=== PATIENT | male | born 1930 | race Caucasian/White ===

== ENCOUNTER 2019-02-24 07:58 | Emergency (ER) | payer MEDICARE, OTHER ==
[~2019-02-24] VITALS: Ht 175.3 cm; Wt 77.3 kg
[2019-02-24] MEDS ORDERED: PRAVACHOL 20MG20 MG PO (08:24)
[2019-02-24] MEDS ORDERED: ZYLOPRIM 300MG300 MG PO (08:24)
[2019-02-24] MEDS ORDERED: VITAMIN D 400400 IU PO (08:24)
[2019-02-24] MEDS ORDERED: APRESOLINE 10MG10 MG PO (08:25)
[2019-02-24] MEDS ORDERED: COZAAR100 MG PO (08:25)
[2019-02-24] MEDS ORDERED: BASAGLAR K100 UNIT/1 SQ (08:25)
[2019-02-24] MEDS ORDERED: LASIX 20MG TABL20 MG PO (08:26)
[2019-02-24] MEDS ORDERED: LOPRESSOR 550 MG/TAB PO (08:26)
[2019-02-24] MEDS ORDERED: SENSIPAR30 MG PO (08:26)
[2019-02-24] MEDS ORDERED: PROCRIT 2,02 MU/VIAL (08:26)
[2019-02-24] MEDS ORDERED: HYTRIN 5MG C5 MG/CAP PO (08:27)
[2019-02-24 08:58] LABS: COLLECTION METHOD CLEAN CATCH
[2019-02-24 09:01] LABS: BASO % 0.1 % (0.0-2.0); EOS # 0.1 (0.0-0.7); EOS % 0.9 % (0-4.0); GRAN # 6.9 (1.4-6.5); GRAN % 84.7 % (42.2-75.2); HEMATOCRIT 27.7 % (42.0-52.0); HEMOGLOBIN 8.1 g/dl (13.5-18.0); LYMPH # 0.8 (1.2-3.4); LYMPH % 9.2 % (20.0-51.0); MEAN CELL VOLUME 86 fl (80.0-100.0); MEAN CORPUSCULAR HEMOGLOBIN 25 pg (27.0-31.0); MEAN CORPUSCULAR HGB CONC 29 g/dl (33.0-37.0); MONO # 0.4 (0.1-0.6); MONO % 4.7 % (1.7-9.3); PLATELET COUNT 195 K/mm3 (130-400); RED BLOOD COUNT 3.24 M/mm3 (4.20-5.60); REDCELL DISTRIBUTION WIDTH-CV 17.2 % (11.5-14.5)
[2019-02-24 09:12] LABS: MUCOUS Present /lpf; PH 6 (5-8); SQUAMOUS EPITHELIAL 0-2 /hpf; URINE APPEARANCE Clear; URINE BACTERIA None Seen /hpf; URINE BILIRUBIN Negative (NEGATIVE); URINE BLOOD Negative (NEGATIVE); URINE COLOR Yellow; URINE GLUCOSE Negative (NEGATIVE); URINE KETONE Negative (NEGATIVE); URINE LEUKOCYTE ESTERASE Negative (NEGATIVE); URINE NITRATE Negative (NEGATIVE); URINE PROTEIN(semi-quant) 2+ (NEGATIVE); URINE UROBILINOGEN Negative (NEGATIVE)
[2019-02-24 09:39] LABS: ALBUMIN 3.9 gm/dL (3.5-5.0); BILIRUBIN,TOTAL 0.4 mg/dL (0.0-1.0); CALCIUM 8.3 mg/dL (8.4-10.2); CREATININE, serum 1.61 (0.66-1.25); POTASSIUM 3.8 mmol/L (3.4-5.0); TOTAL PROTEIN 7.2 gm/dL (6.4-8.2)
[2019-02-24] MEDS ORDERED: CIPRO 250MG TA250 MG PO (10:24)
[2019-02-24 10:45] VITALS: BP 129/94; PULSE 95; TEMP 97.5
== END 2019-02-24 10:48 | disposition home or self-care (01) ==
LOC: COL.ER 07:58
PROVIDERS: Emergency Medicine
DX: N18.9 Chronic kidney disease, unspecified (principal); R33.9 Retention of urine, unspecified; E11.9 Type 2 diabetes mellitus without complications; I10 Essential (primary) hypertension; D64.9 Anemia, unspecified; Z87.442 Personal history of urinary calculi; Z90.49 Acquired absence of other specified parts of digestive tract; Z87.438 Personal history of other diseases of male genital organs; Z85.6 Personal history of leukemia; Z79.4 Long term (current) use of insulin
CPT/HCPCS: J7030

== ENCOUNTER 2019-02-27 14:05 | Emergency (ER) | payer MEDICARE, OTHER ==
[~2019-02-27] VITALS: Ht 175.3 cm; Wt 77.3 kg
[~2019-02-27 14:05] MED LIST: APRESOLINE 10MG10 MG PO; BASAGLAR K100 UNIT/1 SQ; CIPRO 250MG TA250 MG PO; COZAAR100 MG PO; HYTRIN 5MG C5 MG/CAP PO; LASIX 20MG TABL20 MG PO; LOPRESSOR 550 MG/TAB PO; PRAVACHOL 20MG20 MG PO; PROCRIT 2,02 MU/VIAL; SENSIPAR30 MG PO; VITAMIN D 400400 IU PO; ZYLOPRIM 300MG300 MG PO
[2019-02-27 14:16] VITALS: BP 150/69; TEMP 97.6
[2019-02-27 15:59] LABS: COLLECTION METHOD IN
[2019-02-27 16:38] LABS: MUCOUS Present /lpf; PH 5 (5-8); SQUAMOUS EPITHELIAL 0-2 /hpf; URINE APPEARANCE Hazy; URINE BACTERIA None Seen /hpf; URINE BILIRUBIN Negative (NEGATIVE); URINE BLOOD 3+ (NEGATIVE); URINE COLOR Yellow; URINE GLUCOSE Negative (NEGATIVE); URINE KETONE Negative (NEGATIVE); URINE LEUKOCYTE ESTERASE Trace (NEGATIVE); URINE NITRATE Negative (NEGATIVE); URINE PROTEIN(semi-quant) 1+ (NEGATIVE); URINE RBC >50 /hpf; URINE UROBILINOGEN Negative (NEGATIVE)
[2019-02-27] MEDS ORDERED: CIPRO 500MG TA500 MG PO (16:45)
[2019-02-27 17:05] VITALS: PULSE 82
== END 2019-02-27 17:05 | disposition home or self-care (01) ==
LOC: COL.ER 14:05
PROVIDERS: Emergency Medicine
DX: T83.098A Other mechanical complication of other urinary catheter, initial encounter (principal); R33.9 Retention of urine, unspecified; E11.9 Type 2 diabetes mellitus without complications; E78.5 Hyperlipidemia, unspecified; I10 Essential (primary) hypertension; Z87.891 Personal history of nicotine dependence; Z90.49 Acquired absence of other specified parts of digestive tract; Z79.4 Long term (current) use of insulin

== ENCOUNTER 2019-03-03 15:10 | Inpatient (IN) | payer MEDICARE, OTHER ==
[~2019-03-03] VITALS: Ht 175.3 cm; Wt 87.9 kg
[2019-03-03] VITALS (138 sets, daily range): BP systolic 142–151; BP diastolic 65–82; PULSE 70–77; TEMP 97.6–98; O2SAT 93–100
[~2019-03-03 15:10] MED LIST changes: +CIPRO 500MG TA500 MG PO
[2019-03-03 19:32] LABS: BASO % 0.4 % (0.0-2.0); EOS # 0.2 (0.0-0.7); EOS % 4.3 % (0-4.0); GRAN # 3.5 (1.4-6.5); LYMPH # 1.2 (1.2-3.4); LYMPH % 22.9 % (20.0-51.0); MEAN CELL VOLUME 85 fl (80.0-100.0); MEAN CORPUSCULAR HGB CONC 29 g/dl (33.0-37.0); MONO # 0.3 (0.1-0.6); PLATELET COUNT 157 K/mm3 (130-400)
[2019-03-03 19:34] LABS: HEMATOCRIT 20.5 % (42.0-52.0); HEMOGLOBIN 5.9 g/dl (13.5-18.0); MEAN CORPUSCULAR HEMOGLOBIN 25 pg (27.0-31.0)
[2019-03-03 19:42] LABS: ALBUMIN 3.1 gm/dL (3.5-5.0); BILIRUBIN,TOTAL 0.2 mg/dL (0.0-1.0); CALCIUM 7.3 mg/dL (8.4-10.2); CREATININE, serum 1.84 (0.66-1.25); POTASSIUM 3.6 mmol/L (3.4-5.0)
[2019-03-03 20:23] LABS: COLLECTION METHOD IN
[2019-03-03 20:37] LABS: PH 5 (5-8); SQUAMOUS EPITHELIAL None Seen /hpf; URINE APPEARANCE Clear; URINE BACTERIA None Seen /hpf; URINE BILIRUBIN Negative (NEGATIVE); URINE BLOOD 3+ (NEGATIVE); URINE COLOR Yellow; URINE GLUCOSE Negative (NEGATIVE); URINE KETONE Negative (NEGATIVE); URINE LEUKOCYTE ESTERASE Trace (NEGATIVE); URINE NITRATE Negative (NEGATIVE); URINE PROTEIN(semi-quant) 2+ (NEGATIVE); URINE RBC >50 /hpf; URINE UROBILINOGEN Negative (NEGATIVE)
[2019-03-04] VITALS (869 sets, daily range): BP systolic 128–151; BP diastolic 56–96; PULSE 63–83; TEMP 97.4–98.2; O2SAT 76–100
[2019-03-04] MEDS ORDERED: PROCRIT 2,02 MU/VIAL SQ (00:08)
[2019-03-04 04:22] LABS: BASO % 0.3 % (0.0-2.0); EOS # 0.3 (0.0-0.7); EOS % 4.9 % (0-4.0); GRAN # 4.3 (1.4-6.5); GRAN % 69.3 % (42.2-75.2); HEMATOCRIT 24.4 % (42.0-52.0); HEMOGLOBIN 7.5 g/dl (13.5-18.0); LYMPH # 1.1 (1.2-3.4); LYMPH % 17.8 % (20.0-51.0); MEAN CELL VOLUME 85 fl (80.0-100.0); MEAN CORPUSCULAR HEMOGLOBIN 26 pg (27.0-31.0); MEAN CORPUSCULAR HGB CONC 31 g/dl (33.0-37.0); MONO # 0.5 (0.1-0.6); MONO % 7.4 % (1.7-9.3); PLATELET COUNT 173 K/mm3 (130-400); RED BLOOD COUNT 2.88 M/mm3 (4.20-5.60)
[2019-03-04 04:34] LABS: CALCIUM 7.1 mg/dL (8.4-10.2); CREATININE, serum 1.53 (0.66-1.25); POTASSIUM 3.7 mmol/L (3.4-5.0)
--- NOTE | 2019-03-04 07:15 | NUR ---
BEDSIDE REPORT RECIEVED FROM SHIRLEY FARIAS.
--- NOTE | 2019-03-04 10:46 | NUR ---
MAEGAN met with the patient to discuss a discharge plan. The pt lives in [place] with his Mayte Mckenna. The pt has a cane and a walker and reports independence with ADLs. The pt's PCP is Dr. Sinclair with [facility] at the [facility]. Pt receives his medications via mail with no difficulties. The pt does not have advanced directives in the EMR but reports he does have them complete and designate his , Mayte Mckenna, and their daughter Silvia. The pt plans to return home upon discharge. There are no additional needs at this time.
[2019-03-04] MEDS ORDERED: ASPIRIN E.C. 8181 MG PO (11:22)
[2019-03-04] MEDS ORDERED: APRESOLINE 10MG10 MG PO (11:25)
[2019-03-04] MEDS ORDERED: FERROUS SU220 MG/5 M PO (11:29)
[2019-03-04 14:50] LABS: HEMATOCRIT 25.5 % (42.0-52.0); HEMOGLOBIN 7.8 g/dl (13.5-18.0)
--- NOTE | 2019-03-04 15:00 | NUR ---
PATIENT PICKED UP BY SHIRLEY MCDERMOTT FOR COLONOSCOPY PROCEDURE. CONSENT FORM NOT SIGNED AT THIS TIME. PATIENT HAS YET TO SPEAK WITH DOCTOR DINORA.
--- NOTE | 2019-03-04 16:00 | NUR ---
PATIENT RETURNED FROM EGD AND COLONOSCOPY ALERT AND ORIENTED. WAS ABLE TO AMBULATE TO THE BED. PATIENT'S VITAL SIGNS WERE WITHIN NORMAL LIMITS.
--- NOTE | 2019-03-04 19:44 | NUR ---
BEDSIDE REPORT GIVEN TO SHIRLEY FARIAS.
[2019-03-04 22:34] LABS: HEMATOCRIT 23.2 % (42.0-52.0)
[2019-03-05] VITALS (448 sets, daily range): BP systolic 118–155; BP diastolic 57–89; PULSE 56–69; TEMP 97.6–98.4; O2SAT 73–100
[2019-03-05 05:45] LABS: BASO % 0.4 % (0.0-2.0); EOS # 0.2 (0.0-0.7); EOS % 4.8 % (0-4.0); GRAN # 3.1 (1.4-6.5); LYMPH # 1.1 (1.2-3.4); LYMPH % 22.2 % (20.0-51.0); MEAN CELL VOLUME 86 fl (80.0-100.0); MEAN CORPUSCULAR HGB CONC 29 g/dl (33.0-37.0); MONO # 0.4 (0.1-0.6); MONO % 8.2 % (1.7-9.3); PLATELET COUNT 163 K/mm3 (130-400); RED BLOOD COUNT 2.78 M/mm3 (4.20-5.60); REDCELL DISTRIBUTION WIDTH-CV 16.3 % (11.5-14.5)
[2019-03-05 05:50] LABS: MEAN CORPUSCULAR HEMOGLOBIN 25 pg (27.0-31.0)
[2019-03-05 05:56] LABS: CALCIUM 6.5 mg/dL (8.4-10.2); CREATININE, serum 1.36 (0.66-1.25); POTASSIUM 3.2 mmol/L (3.4-5.0)
--- NOTE | 2019-03-05 07:10 | NUR ---
RECEIVED BEDSIDE REPORT FROM SHIRLEY FARIAS.
--- NOTE | 2019-03-05 10:26 | NUR ---
Initial visit; Patient 'Cicero' thanked Oyster Fisherman for looking in on him and offering prayer and Spiritual Care.
--- NOTE | 2019-03-05 13:52 | NUR ---
SW attended clinical rounds. Patient will be moved to the surgical floor today. SW will continue to follow.
--- NOTE | 2019-03-05 15:19 | NUR ---
REPORT CALLED TO SHIRLEY KNOTT. PATIENT WILL BE TRANSFERRED TO SURGICAL FLOOR, ROOM 324.
--- NOTE | 2019-03-05 15:40 | NUR ---
PATIENT TRANSFERRED TO SURGICAL FLOOR. PATIENT SEEN BY RECEIVING RNHEDY.
--- NOTE | 2019-03-05 17:22 | NUR ---
PT TO ROOM 324 @1600 WITH REPORT FROM TALI WATSON. BLOOD RUNNING @100 MLS HR.
--- NOTE | 2019-03-05 20:00 | NUR ---
Report received. Assumed care for weight shifter. Assessment complete. VS stable. Unit of PRBC infused-Magnesium hung at this time per dr order. Denies pain. Hernandez cath with clear yellow urine. Plan of care discussed for NPO after midnight. Verbalizes understanding. C/O pola hose being to tight-noted to have indentions at upper thigh. Cut slits in band to prevent irritation. Denies any other needs at this time. Call light in reach and encouraged to call for questions. Verbalizes understanding. WIll monitor.
[2019-03-05 22:01] LABS: HEMATOCRIT 27.6 % (42.0-52.0); HEMOGLOBIN 8.2 g/dl (13.5-18.0)
[2019-03-06] VITALS (11 sets, daily range): BP systolic 102–164; BP diastolic 52–91; PULSE 55–75; TEMP 96–98.1
--- NOTE | 2019-03-06 07:00 | NUR ---
report from Darya WATSON.
[2019-03-06 07:05] LABS: PROTHROMBIN TIME 11.9 SECONDS (9.7-12.8)
[2019-03-06 07:06] LABS: BASO % 0.2 % (0.0-2.0); EOS # 0.2 (0.0-0.7); EOS % 4.3 % (0-4.0); LYMPH # 1.1 (1.2-3.4); LYMPH % 22.6 % (20.0-51.0); MEAN CELL VOLUME 85 fl (80.0-100.0); MEAN CORPUSCULAR HGB CONC 30 g/dl (33.0-37.0); MEAN PLATELET VOLUME 10.4 fl (7.4-10.4); MONO # 0.4 (0.1-0.6); MONO % 8.5 % (1.7-9.3); PLATELET COUNT 162 K/mm3 (130-400); REDCELL DISTRIBUTION WIDTH-CV 16.7 % (11.5-14.5)
[2019-03-06 07:07] LABS: CALCIUM 7.1 mg/dL (8.4-10.2); CREATININE, serum 1.49 (0.66-1.25); POTASSIUM 4.4 mmol/L (3.4-5.0)
[2019-03-06 07:13] LABS: HEMATOCRIT 26.3 % (42.0-52.0); HEMOGLOBIN 7.9 g/dl (13.5-18.0); MEAN CORPUSCULAR HEMOGLOBIN 25 pg (27.0-31.0)
--- NOTE | 2019-03-06 15:56 | NUR ---
pt to surgery per bed with
--- NOTE | 2019-03-06 18:51 | NUR ---
PT TO ROOM 324 OER BED WITH REPORT FROM LORAINE WATSON. PT DROWSEY BUT AROUSEABLE. VSS, CBI WITH 6000 CR. PT DENIES NEEDS FAMILY AT BEDSIDE.
--- NOTE | 2019-03-06 18:54 | NUR ---
REPORT TO ROULA WATSON.
--- NOTE | 2019-03-06 20:00 | NUR ---
Report received. Assumed care for overnight caregiver. Assessment complete. VS stable-currently on post op vitals Q15. Denies pain but has c/o nausea with some dry heaves. Dr Montoya notified and new orders received for IV zofran. Given at this time. CBI at a moderate rate-output is red to light pink. Encouraged to call for questions or concers. Denies needs. WIll monitor.
[2019-03-07 03:53] VITALS: BP 135/51; PULSE 64; TEMP 98
--- NOTE | 2019-03-07 04:00 | NUR ---
Rested off and on this shift. Denies pain. CBI at a slow rate. Urine remains light pink with occasional clot. Denies Nausea. Encouraged to call for questions or concerns. Verbalizes understanding. WIll monitor.
--- NOTE | 2019-03-07 06:54 | NUR ---
Report given to Mehdi WATSON
--- NOTE | 2019-03-07 07:00 | NUR ---
Report from Darya WATSON.
[2019-03-07 07:56] LABS: CREATININE, serum 1.37 (0.66-1.25); POTASSIUM 4.4 mmol/L (3.4-5.0)
[2019-03-07 08:05] VITALS: BP 155/70; PULSE 78; TEMP 97.9
[2019-03-07 08:18] LABS: BASO % 0.4 % (0.0-2.0); EOS # 0.2 (0.0-0.7); EOS % 3.9 % (0-4.0); GRAN # 3.5 (1.4-6.5); GRAN % 69.5 % (42.2-75.2); HEMATOCRIT 25.5 % (42.0-52.0); HEMOGLOBIN 7.7 g/dl (13.5-18.0); LYMPH # 0.9 (1.2-3.4); LYMPH % 17.9 % (20.0-51.0); MEAN CELL VOLUME 86 fl (80.0-100.0); MEAN CORPUSCULAR HEMOGLOBIN 26 pg (27.0-31.0); MEAN CORPUSCULAR HGB CONC 30 g/dl (33.0-37.0); MEAN PLATELET VOLUME 10.1 fl (7.4-10.4); MONO # 0.4 (0.1-0.6); MONO % 7.7 % (1.7-9.3); PLATELET COUNT 146 K/mm3 (130-400); RED BLOOD COUNT 2.97 M/mm3 (4.20-5.60); REDCELL DISTRIBUTION WIDTH-CV 16.7 % (11.5-14.5)
[2019-03-07 11:54] VITALS: BP 147/57; PULSE 68; TEMP 98.4
[2019-03-07 15:27] VITALS: BP 145/56; PULSE 73; TEMP 98.2
--- NOTE | 2019-03-07 18:52 | NUR ---
REPORT TO CHRIS WATSON.
[2019-03-07 19:47] VITALS: BP 148/53; PULSE 68; TEMP 98.2
[2019-03-07 23:57] VITALS: BP 141/60; PULSE 74; TEMP 98.3
[2019-03-08 04:59] VITALS: BP 124/52; PULSE 81; TEMP 98.1
[2019-03-08 06:42] LABS: BASO % 0.4 % (0.0-2.0); EOS # 0.2 (0.0-0.7); EOS % 2.7 % (0-4.0); GRAN # 5.7 (1.4-6.5); GRAN % 75.8 % (42.2-75.2); LYMPH # 1.1 (1.2-3.4); MEAN CELL VOLUME 88 fl (80.0-100.0); MEAN CORPUSCULAR HGB CONC 29 g/dl (33.0-37.0); MEAN PLATELET VOLUME 9.8 fl (7.4-10.4); MONO # 0.5 (0.1-0.6); MONO % 6.7 % (1.7-9.3); PLATELET COUNT 168 K/mm3 (130-400); RED BLOOD COUNT 3.28 M/mm3 (4.20-5.60); REDCELL DISTRIBUTION WIDTH-CV 16.6 % (11.5-14.5)
[2019-03-08 06:49] LABS: CALCIUM 7.3 mg/dL (8.4-10.2); CREATININE, serum 1.8 (0.66-1.25); POTASSIUM 4.7 mmol/L (3.4-5.0)
[2019-03-08 06:50] LABS: HEMOGLOBIN 8.5 g/dl (13.5-18.0); MEAN CORPUSCULAR HEMOGLOBIN 26 pg (27.0-31.0)
[2019-03-08 06:51] LABS: HEMATOCRIT 28.9 % (42.0-52.0)
[2019-03-08 07:48] VITALS: BP 118/50; PULSE 74; TEMP 98.1
[2019-03-08] MEDS ORDERED: COZAAR 50MG50 MG/TAB PO (09:11)
[2019-03-08] MEDS ORDERED: LASIX 20MG TABL20 MG PO (09:11)
--- NOTE | 2019-03-08 11:43 | NUR ---
SW presented IM to patient and verbally discussed the contents. Patient was agreeable and signed the form. Patient presented with copy and the original is on the chart. Patient dc home today with family support.
[2019-03-08 12:00] VITALS: BP 129/77; PULSE 64; TEMP 97.7
--- NOTE | 2019-03-08 12:12 | NUR ---
rounded this am. Orders obtained. Patient colon primed & pulled per orders. Patient has completed 6 bottle routine. Voiding, light pink small amount of urine. He denies pain or difficulty. He is tolerating diet. Supportive family at bedside. Hospitalist team rounded & medications changes made.
--- NOTE | 2019-03-08 14:13 | NUR ---
Patient has completed 6 bottle routine, voided minimally, bladder scanned 611ml residual. Dr. Montoya notifed. He wants patient to be monitored a few more hours, He does expect some residual though, Stressed the importance of patient voiding every 2 hours no matter what.
--- NOTE | 2019-03-08 16:33 | NUR ---
Verified again with & patient is cleared for discharge. Patient & his & daughter given all dsicharge teaching, deny questions or concerns. [facility] notified & paperwork faxed & attempted to make follow up appt. for patient. follow up for reviewed. Patient aware to get BMP lab recheck next week. We reviewed diet & activity guidelines post TURP. Int dc. Patient home med list reviewed & changes made & reviewed. Patient wheeled out with all belingings.
== END 2019-03-08 16:00 | disposition home or self-care (01) | DRG 683 ==
LOC: COL.ER 15:10 → ICU 20:04 → SURG 20:04
PROVIDERS: Emergency Medicine; Internal Medicine Gastroenterology; Nurse Practitioner Family; Physician Assistant; ADMIT Internal Medicine
PROC: 0W3P8ZZ Control Bleeding in Gastrointestinal Tract, Via Natural or Artificial Opening Endoscopic (ICD-10-PCS; 2019-03-04)
PROC: 0DJ08ZZ Inspection of Upper Intestinal Tract, Via Natural or Artificial Opening Endoscopic (ICD-10-PCS; principal; 2019-03-04 15:00)
PROC: 0DBH8ZZ Excision of Cecum, Via Natural or Artificial Opening Endoscopic (ICD-10-PCS; 2019-03-04 15:00)
DX: N17.9 Acute kidney failure, unspecified (principal); N39.0 Urinary tract infection, site not specified; C91.10 Chronic lymphocytic leukemia of B-cell type not having achieved remission; D50.0 Iron deficiency anemia secondary to blood loss (chronic); N40.1 Benign prostatic hyperplasia with lower urinary tract symptoms; R33.8 Other retention of urine; K63.5 Polyp of colon; I10 Essential (primary) hypertension; E78.5 Hyperlipidemia, unspecified; E83.42 Hypomagnesemia; E11.9 Type 2 diabetes mellitus without complications; E87.6 Hypokalemia; Z66 Do not resuscitate; M10.9 Gout, unspecified; M81.0 Age-related osteoporosis without current pathological fracture; Z79.4 Long term (current) use of insulin; Z87.891 Personal history of nicotine dependence; Z88.5 Allergy status to narcotic agent
CPT/HCPCS: 99223-AI; 99231-AI; 99232-AI; 99239; C9113; J0690; J1815; J2250; J2405; J2704; J3010; J3475; J7030; P9016

== ENCOUNTER 2019-09-19 08:03 | Inpatient (IN) | payer OTHER ==
[2019-09-19] VITALS (15 sets, daily range): BP systolic 105–136; BP diastolic 43–86; PULSE 80–117; TEMP 97.5–98.8
[~2019-09-19] VITALS: Ht 175.3 cm; Wt 75.3 kg
[~2019-09-19 08:03] MED LIST changes: +ASPIRIN E.C. 8181 MG PO; +COZAAR 50MG50 MG/TAB PO; +FERROUS SU220 MG/5 M PO; +PROCRIT 2,02 MU/VIAL SQ
[2019-09-19 09:44] LABS: BASO % 0.3 % (0.0-2.0); EOS # 0.1 (0.0-0.7); GRAN # 2.9 (1.4-6.5); GRAN % 73.4 % (42.2-75.2); LYMPH # 0.7 (1.2-3.4); LYMPH % 16.3 % (20.0-51.0); MEAN CELL VOLUME 87 fl (80.0-100.0); MEAN CORPUSCULAR HGB CONC 29 g/dl (33.0-37.0); MEAN PLATELET VOLUME 9.3 fl (7.4-10.4); MONO # 0.3 (0.1-0.6); MONO % 7.5 % (1.7-9.3); PLATELET COUNT 216 K/mm3 (130-400); RED BLOOD COUNT 1.82 M/mm3 (4.20-5.60); REDCELL DISTRIBUTION WIDTH-CV 16.6 % (11.5-14.5)
[2019-09-19 09:47] LABS: INR 1.3 (0.8-3.0); PROTHROMBIN TIME 15.2 SECONDS (9.7-12.8)
[2019-09-19 09:48] LABS: HEMOGLOBIN 4.5 g/dl (13.5-18.0); MEAN CORPUSCULAR HEMOGLOBIN 25 pg (27.0-31.0)
[2019-09-19 09:49] LABS: HEMATOCRIT 15.8 % (42.0-52.0)
[2019-09-19 09:53] LABS: ALBUMIN 2.9 gm/dL (3.5-5.0); BILIRUBIN,TOTAL 0.2 mg/dL (0.0-1.0); CALCIUM 8.2 mg/dL (8.4-10.2); CREATININE, serum 2.04 (0.66-1.25); POTASSIUM 4.6 mmol/L (3.4-5.0); TOTAL PROTEIN 5.8 gm/dL (6.4-8.2)
[2019-09-19] MEDS ORDERED: ASPIRIN 81M81 MG/TA2 PO (10:02)
[2019-09-19 10:05] LABS: TROPONIN-I 0.014 ng/mL (0.000-0.035)
[2019-09-19] MEDS ORDERED: LASIX 20MG TABL20 MG PO (10:05)
[2019-09-19] MEDS ORDERED: COZAAR100 MG PO (10:06)
[2019-09-19] MEDS ORDERED: SENSIPAR30 MG PO (10:09)
[2019-09-19 10:40] LABS: IRON,SERUM < 10 ug/dL (35-150)
[2019-09-19 10:49] LABS: TOTAL IRON BINDING CAPACITY 209 ug/dL (261-462)
--- NOTE | 2019-09-19 13:30 | NUR ---
Pt arrived to room 314 at this time. He is assisted to the bed with a SBA. Pt is A/O x4. His breathing becomes tachypneic on exertion, pt is on RA. He denies any pain. See Assessment B for further assessment data. POC discussed with patient who is agreeable to blood transfusion. 2 IV access sites, one to LFA and RAC, both flush without complications. No needs at this time. Call light within reach.
--- NOTE | 2019-09-19 15:30 | NUR ---
Patient is out of his room for CT Scan.
--- NOTE | 2019-09-19 15:34 | NUR ---
Pt disconnected from unit of blood for CT scan at this time.
--- NOTE | 2019-09-19 17:18 | NUR ---
Second unit of blood started at this time. Protocol followed by nursing staff. This nurse will remain at bedside for first 15 minutes.
--- NOTE | 2019-09-19 19:23 | NUR ---
report received from SHIRLEY Jorgensen. Pt is laying in Bed receiving 1 unit of blood. No current complaints at this time. Will continue to monitor pt. Call light within reach.
--- NOTE | 2019-09-19 20:15 | NUR ---
Pt tolerated blood transfusions well thus far. On second unit of 3. POC discussed with patient who is in agreeance. No pain or concerns voiced. Pt has no further needs. Report given to SHIRLEY Porter.
[2019-09-19 22:37] LABS: TRANSFERRIN 141 mg/dL (180-329)
[2019-09-19 23:11] LABS: FOLATE (FOLIC ACID) 15.7 ng/mL (7.0-31.4)
--- NOTE | 2019-09-19 23:30 | NUR ---
3RD UNIT OF BLOOD TRANSFUSING. PT HAS NO C/O PAIN OR DISCOMFORT AT THIS TIME.
[2019-09-20] VITALS: BP 115/63; PULSE 92; TEMP 98.6
[2019-09-20 02:00] VITALS: BP 121/85; PULSE 93; TEMP 98.4
[2019-09-20 02:15] VITALS: BP 133/66; PULSE 97; TEMP 98.5
--- NOTE | 2019-09-20 02:19 | NUR ---
PT FINISHED THE BLOOD TRANSFUSION. NO C/O PAIN OR DISCOMFORT. VS ARE WNL. PT STATES HE FEELS GREAT. H&H WILL BE CHECKED AT 0330. NO FURTHER CONCERNS AT THIS TIME. CALL LIGHT WITHIN REACH.
[2019-09-20 04:02] LABS: BASO % 0.2 % (0.0-2.0); EOS # 0.1 (0.0-0.7); EOS % 1.9 % (0-4.0); GRAN # 3.5 (1.4-6.5); GRAN % 74.6 % (42.2-75.2); LYMPH # 0.7 (1.2-3.4); LYMPH % 14.3 % (20.0-51.0); MEAN CELL VOLUME 86 fl (80.0-100.0); MEAN CORPUSCULAR HGB CONC 31 g/dl (33.0-37.0); MEAN PLATELET VOLUME 9.1 fl (7.4-10.4); MONO # 0.4 (0.1-0.6); MONO % 7.9 % (1.7-9.3); PLATELET COUNT 219 K/mm3 (130-400); RED BLOOD COUNT 2.71 M/mm3 (4.20-5.60); REDCELL DISTRIBUTION WIDTH-CV 15.7 % (11.5-14.5)
[2019-09-20 04:03] LABS: HEMATOCRIT 23.2 % (42.0-52.0); HEMOGLOBIN 7.2 g/dl (13.5-18.0); MEAN CORPUSCULAR HEMOGLOBIN 27 pg (27.0-31.0)
[2019-09-20 04:09] LABS: CALCIUM 8.3 mg/dL (8.4-10.2); POTASSIUM 4.4 mmol/L (3.4-5.0)
--- NOTE | 2019-09-20 04:14 | NUR ---
H&H COMPLETED. HGB WENT FROM 4.5 TO 7.2.
[2019-09-20 04:46] VITALS: BP 120/57; PULSE 92; TEMP 98.3
--- NOTE | 2019-09-20 08:00 | NUR ---
PT HAD A GREAT NIGHT. WAS VERY PLEASANT, AND A SUKUMAR TO WALK INTO THE ROOM. PT HAD 3 UNITS OF BLOOD GIVEN, AND H&H SE FROM 4.5 TO 7.2. PT HAS NO COMPLAINTS AND NO CONCERNS. REPORT GIVEN TO LOVE. TRANSFER OF CARE COMPLETE.
[2019-09-20 08:21] VITALS: BP 102/48; PULSE 95; TEMP 97.4
--- NOTE | 2019-09-20 10:44 | NUR ---
MAEGAN met with the patient, his (Mayte Mckenna, ph#[phone]), daughter (Silvia, ph#[phone]), cousin, and friend to discuss discharge plan. The patient lives in [place] with his . His daughter, Silvia, also lives in [place]. He reports independence with ADLs and has a cane, walker, and lift chair. The patient's PCP is Dr. Rosenbaum at the [facility] and he also receives his medications there. The patient does not have advanced directives in EMR, but he states that he does have them completed. His daughter, Silvia, states that he is the patient's DPOA-HC. The patient plans to return home with his upon discharge. No additional needs at this time.
--- NOTE | 2019-09-20 10:48 | NUR ---
Assessment complete. Patient sitting at window sill with walker. Alert and oriented. Patient is aware of POC, states he is "just waiting for the doctor to see me". No complaints of pain or discomfort at this time. Left FA IV flushed well, Right FA did not, will remove. No further needs were expressed at this time. Call light is within reach.
[2019-09-20 11:10] LABS: HEMATOCRIT 25.7 % (42.0-52.0); HEMOGLOBIN 7.9 g/dl (13.5-18.0)
[2019-09-20 11:39] VITALS: BP 128/55; PULSE 82; TEMP 97.5
--- NOTE | 2019-09-20 15:55 | NUR ---
PATIENT LEFT THE FLOOR AT THIS TIME. DISCHARGE INSTRUCTIONS WERE DISCUSSED. PATIENT FORGOT TO SIGN DISCHARGE PAPERWORK, BUT IT WAS DISCUSSED PRIOR TO HIS DEPARTURE.
[2019-09-20] MEDS ORDERED: LASIX 20MG TABL20 MG PO (16:00)
== END 2019-09-20 17:12 | disposition home or self-care (01) | DRG 812 ==
LOC: COL.ER 08:03 → MEDICAL 09:54
PROVIDERS: Emergency Medicine; Nurse Practitioner Family; Physician Assistant; ADMIT Hospitalist
DX: D50.9 Iron deficiency anemia, unspecified (principal); C91.10 Chronic lymphocytic leukemia of B-cell type not having achieved remission; C78.00 Secondary malignant neoplasm of unspecified lung; I12.9 Hypertensive chronic kidney disease with stage 1 through stage 4 chronic kidney disease, or unspecified chronic kidney disease; N18.9 Chronic kidney disease, unspecified; E11.22 Type 2 diabetes mellitus with diabetic chronic kidney disease; M10.9 Gout, unspecified; E78.5 Hyperlipidemia, unspecified; M81.0 Age-related osteoporosis without current pathological fracture; D63.1 Anemia in chronic kidney disease; I34.0 Nonrheumatic mitral (valve) insufficiency; R19.09 Other intra-abdominal and pelvic swelling, mass and lump; Z79.4 Long term (current) use of insulin; Z79.82 Long term (current) use of aspirin; Z87.891 Personal history of nicotine dependence; Z88.5 Allergy status to narcotic agent
CPT/HCPCS: 99222-AI; 99239; C9113; J1815; J2916; P9016